=== PATIENT | male | born 1970 | race African-American/Black ===

== ENCOUNTER 2017-01-19 10:45 | Inpatient (IN) | payer OTHER ==
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
--- NOTE | ~2017-01-19 | PN ---
Unit #: [id number] #: [id number] Patient: BRITTANY WRAY [id number] [facility] [address] [place] [address] [id number] I MR#: [id number] NAME: BRITTANY WRAY ROOM: [facility] Age: 46 Sex: M Admission Date: 01/19/2017 : 1970 Attending Physician: Curtis Ellis M.D. Admitting Physician: Curtis Ellis M.D. Primary Care Physician: Tracee Doctor Not In System [facility] PROGRESS NOTES DATE 01/21/2017 DISCUSSION The patient is again sleeping soundly and attempts to arouse him are unsuccessful. He has been restarted on Haldol and should obtain his dose of Haldol Deaconate in the next day or so. Dictated by... Curtis Ellis M.D. CB/cassandra TD: 01/22/2017 03:18 JOB #: [id number] [facility] PROGRESS NOTES Page 1 of 1 X Curtis Ellis MD PROGRESS NOTE
--- NOTE | ~2017-01-19 | DS ---
Unit #: [id number] #: [id number] Patient: BRITTANY WRAY [id number] [facility] [address] [place] [address] [id number] I MR#: [id number] NAME: BRITTANY WRAY ROOM: [facility] Age: 46 Sex: M Admission Date: 01/19/2017 : 1970 Discharge Date: 01/22/2017 Attending Physician: Curtis Ellis M.D. Primary Care Physician: Generic Doctor Not In System DISCHARGE SUMMARY REASON FOR ADMISSION The patient is a 46-year-old white male with a history of chronic paranoid schizophrenia, admitted following a period of medication noncompliance which led to significant decompensation and auditory hallucinations. HOSPITAL COURSE The patient was admitted to the [facility] unit and placed on suicide precautions. He was restarted on previously prescribed Haldol 10 mg b.i.d. and was given a shot of Haldol Decanoate 100 mg. He showed rapid improvement in his mood and symptoms of psychosis, and by 01/22/2017, he was in bright spirits and requesting discharge. It was so ordered. FINAL DIAGNOSES Chronic paranoid schizophrenia and hypertension. DISPOSITION ON DISCHARGE The patient is discharged on the following medications: Haldol Decanoate 100 mg every 2 weeks, last dose given on 01/19/2017 for psychosis, Haldol 10 mg b.i.d. for psychosis, Cogentin 2 mg q.8 hours p.r.n. extrapyramidal symptoms, Norvasc 10 mg daily for hypertension. DISCHARGE INSTRUCTIONS No dietary or physical restrictions were placed upon the patient at the time of discharge. FOLLOWUP Followup will take place through the auspices of [facility]. PROGNOSIS The patient's prognosis is considered fair. Dictated by... Curtis Ellis M.D. CB/annil TD: 01/22/2017 15:43 JOB #: [id number] Unit #: [id number] #: [id number] Patient: BRITTANY WRAY DISCHARGE SUMMARY Page 1 of 1 X Curtis Ellis MD X DISCHARGE SUMMARY
--- NOTE | ~2017-01-19 | PA ---
Unit #: [id number] #: [id number] Patient: BRITTANY WRAY [id number] [facility] [address] [place] [address] [id number] I MR#: [id number] NAME: BRITTANY WRAY ROOM: [facility] Age: Sex: M Admission Date: 01/19/2017 : 1970 Date of Assessment: 01/20/2017 Attending Physician: Curtis Ellis M.D. Admitting Physician: Curtis Ellis M.D. Primary Care Physician: Generic Doctor Not In System PSYCHIATRIC ASSESSMENT IDENTIFYING INFORMATION The patient is a 46-year-old male admitted with increasing psychosis after a 3-month period of medication noncompliance. CHIEF COMPLAINT None given. INFORMANT Chart. Patient cannot be aroused for interview. HISTORY OF PRESENT ILLNESS The patient is a 46-year-old male last discharged from this facility in February 2016. He has a history of chronic paranoid schizophrenia, and he has tended to do fairly well when compliant with prescribed medications, specifically Haldol, Haldol Decanoate and has been off these medications for some 3 months. He had reported to [facility] or reporting auditory command hallucinations and had required physical management at that facility and several p.r.n.s. When seen today, the patient is resting comfortably. He did refuse labs this morning. He is denying abuse of any psychoactive substances. He does have a history of hypertension. In the past, the patient has worked and at the time of his last hospitalization requested discharge so that he could return to his job. For more complete history of present illness, please refer to previously dictated notes. PAST PSYCHIATRIC HISTORY Reviewed, no changes. PAST MEDICAL HISTORY Reviewed, no changes. MEDICATIONS 1. Zestril. 2. Haldol. 3. Haldol Decanoate. ALLERGIES Risperdal, Geodon. FAMILY HISTORY Reviewed, no changes. SOCIAL HISTORY Reviewed, no changes. Unit #: [id number] #: [id number] Patient: BRITTANY WRAY MENTAL STATUS EXAMINATION Examination at this time reveals the patient to be a well-developed well-nourished male who was sleeping soundly, and multiple attempts to arouse him are unsuccessful. ASSETS AND LIABILITIES The patient's assets are to be assessed. Liabilities: Poor compliance with treatment. DIAGNOSTIC IMPRESSION 1. Chronic paranoid schizophrenia. 2. Hypertension. TREATMENT PLAN The patient remains hospitalized for safety and stabilization. We will restart p.o. Haldol as well as Haldol Decanoate which should be provided within the next couple of days. Zestril will also be restarted. I would suspect that given the patient's prior history of treatment at this facility rapid improvement should take place, and we should have out of the hospital within 5 to 7 days. Dictated by... Curtis Ellis M.D. Lanny TD: 01/20/2017 11:19 JOB #: [id number] PSYCHIATRIC ASSESSMENT Page 1 of 1 X Curtis Ellis MD X PSYCHIATRIC ASSESSMENT
[2017-01-21 11:38] LABS: URINE APPEARANCE CLEAR; URINE BILIRUBIN NEG (NEG); URINE BLOOD NEG (NEG); URINE COLOR YELLOW; URINE GLUCOSE NEG (NEG); URINE KETONE NEG (NEG); URINE LEUKOCYTE ESTERASE NEG (NEG); URINE NITRATE NEG (NEG); URINE PROTEIN NEG (NEG); URINE SPECIFIC GRAVITY 1.019 (1.003-1.035)
[2017-01-21 11:51] LABS: AMPHETAMINE NEG (NEG); BARBITURATES NEG (NEG); BENZODIAZEPINES NEG (NEG); COCAINE POS (NEG); MARIJUANA NEG (NEG); OPIATES NEG (NEG); TRICYCLIC ANTIDEPRESSANTS NEG (NEG); U METHADONE NEG (NEG)
== END 2017-01-22 14:45 | disposition home or self-care (01) | DRG 885 ==
LOC: P2L 14:48
PROVIDERS: Specialist
DX: F20.0 Paranoid schizophrenia (principal); I10 Essential (primary) hypertension
CPT/HCPCS: 80307; 81003; J1631

== ENCOUNTER 2017-01-28 08:00 | Inpatient (IN) | payer OTHER ==
--- NOTE | ~2017-01-28 | HP ---
Unit #: [id number] #: [id number] Patient: BRITTANY WRAY [id number] [facility] [address] [place] [address] [id number] I MR#: [id number] NAME: BRITTANY WRAY ROOM: [facility] Age: 46 Sex: M Admission Date: 01/28/2017 : 1970 Attending Physician: Curtis Ellis M.D. Admitting Physician: Curtis Ellis M.D. Primary Care Physician: Generic Doctor Not In System HISTORY AND PHYSICAL HISTORY OF PRESENT ILLNESS Brittany is a 46 year old admitted to [facility] verbalizing wanting to hurt himself. He was just discharged from this facility. The patient was seen and H and P dated 01/20/2017 was reviewed. This is current. No changes. Please see H and P dated 01/20/2017. Dictated by... Aure Palacios P.A.-C. for Isa Fabian/cassandra TD: 01/30/2017 06:24 JOB #: [id number] HISTORY AND PHYSICAL Page 1 of 1 X Aure Palacios HISTORY AND PHYSICAL
--- NOTE | ~2017-01-28 | DS ---
Unit #: [id number] #: [id number] Patient: BRITTANY WRAY [id number] [facility] [address] [place] [address] [id number] I MR#: [id number] NAME: BRITTANY WRAY ROOM: [facility] Age: 46 Sex: M Admission Date: 01/28/2017 : 1970 Discharge Date: 01/30/2017 Attending Physician: Curtis Ellis M.D. Primary Care Physician: Generic Doctor Not In System DISCHARGE SUMMARY REASON FOR ADMISSION The patient is a 46-year-old male, admitted with recurrence of psychosis and anxiety after he had gone without Cogentin. HOSPITAL COURSE The patient was admitted to the [facility] unit and placed on suicide precautions. He was continued on previously prescribed medications. The importance of consistent compliance with medications was discussed with the patient at some length. By 01/30/2017, the patient was in bright spirits. He exhibited absolutely no signs or symptoms of disorder, mood or thought, and requested discharge. Again the importance of consistent compliance, medication was discussed with the patient. As per his request, discharge was ordered on 01/30/2017. FINAL DIAGNOSES Chronic paranoid schizophrenia and hypertension. DISPOSITION ON DISCHARGE The patient is discharged on the following medications: Norvasc 10 mg daily for hypertension, Cogentin 2 mg q.8 hours p.r.n. EPS, Haldol 10 mg b.i.d. for psychosis, Haldol Decanoate 100 mg every 14 days for psychosis. DISCHARGE INSTRUCTIONS No dietary or physical restrictions were placed upon the patient at the time of discharge. FOLLOWUP Followup will take place through the auspices of community mental health resources. PROGNOSIS The patient's prognosis is considered fair. Dictated by... Curtis Ellis M.D. CB/stanley TD: 01/30/2017 14:12 JOB #: [id number] Unit #: [id number] #: [id number] Patient: BRITTANY WRAY DISCHARGE SUMMARY Page 1 of 1 X Curtis Ellis MD X DISCHARGE SUMMARY
--- NOTE | ~2017-01-28 | PA ---
Unit #: [id number] #: [id number] Patient: BRITTANY WRAY [id number] [facility] [address] [place] [address] [id number] MR#: [id number] NAME: BRITTANY WRAY ROOM: [facility] Age: 46 Sex: M Admission Date: 01/28/2017 : 1970 Date of Assessment: 01/29/2017 Attending Physician: Curtis Ellis M.D. Admitting Physician: Curtis Ellis M.D. Primary Care Physician: Generic Doctor Not In System PSYCHIATRIC ASSESSMENT IDENTIFYING INFORMATION The patient is a 46-year-old male admitted in transfer from [facility] where he had presented voicing positive suicidal ideation. CHIEF COMPLAINT "I didn't have my Cogentin and got scared." INFORMANT Patient, patient's reliability is fair. HISTORY OF PRESENT ILLNESS The patient is a 46-year-old male just discharged from this facility on 01/22/2017. The patient reports that he had not taken his Cogentin for several days and "got scared" however the indication in the chart is that the patient had presented to [facility] voicing positive suicidal ideation with a plan to shoot himself. At this point the patient denies suicidal ideation and reports a wish to return to work. He is employed at the [employer] and he is pleasant and cooperative during today's interview. The importance of compliant with medication is discussed with the patient today. For complete history of present illness please refer to previous dictated notes. PAST PSYCHIATRIC HISTORY Reviewed, no changes. PAST MEDICAL HISTORY Reviewed, no changes. MEDICATIONS 1. Haldol Decanoate 2. Haldol 3. Cogentin 4. Norvasc ALLERGIES Risperdal, Geodon. FAMILY HISTORY Reviewed, no changes. SOCIAL HISTORY Reviewed, no changes. Unit #: [id number] #: [id number] Patient: BRITTANY WRAY MENTAL STATUS EXAMINATION Examination at this time reveals the patient to be a well-developed well-nourished male appearing his staged age. He is in no apparent physical distress at the time of the examination. He is awake, alert and oriented in all spheres. His mood is euthymic. His affect full range. Speech is generally relevant and coherent. There are no gross deficits to memory or cognition noted. Intelligence is judged in the average range based on fund of knowledge. The patient is cooperative throughout the interview. He denies current suicidal or homicidal ideation or psychotic features. Judgement and insight appear to be intact. ASSETS AND LIABILITIES ASSETS: Motivation for change. LIABILITIES: Poor compliance of treatment. DIAGNOSTIC IMPRESSION 1. Chronic paranoid schizophrenia. 2. Hypertension. TREATMENT PLAN The patient remains hospitalized for safety and stabilization. He agrees to remain in the hospital for one further day of observation given suicidal threats made at time of admission though today he states that this physician (1)___ to the hospital only after experiencing intolerable extrapyramidal symptoms. The patient will participate in appropriate lynne and milieu activities with an estimate length of stay in the hospital of two days. Dictated by... Curtis Ellis M.D. LUX/cassandra TD: 01/30/2017 03:22 JOB #: [id number] PSYCHIATRIC ASSESSMENT Page 1 of 1 X Curtis Ellis MD X PSYCHIATRIC ASSESSMENT
== END 2017-01-30 15:10 | disposition home or self-care (01) | DRG 885 ==
LOC: P2L 18:58
DX: F20.0 Paranoid schizophrenia (principal); I10 Essential (primary) hypertension

== ENCOUNTER 2017-02-26 10:00 | Inpatient (IN) | payer OTHER ==
[~2017-02-26] VITALS: Ht 170.2 cm; Wt 68.0 kg
--- NOTE | ~2017-02-26 | PN ---
Unit #: [id number] #: [id number] Patient: BRITTANY WRAY [id number] [facility] [address] [place] [address] [id number] I MR#: [id number] NAME: BRITTANY WRAY. ROOM: P212 Age: 46 Sex: M Admission Date: 02/26/2017 : 1970 Attending Physician: Curtis Ellis M.D. Admitting Physician: Curtis Ellis M.D. Primary Care Physician: Generic Doctor Not In System [facility] PROGRESS NOTES DATE 02/28/2017 DISCUSSION The patient remains seclusive to room but offers no new complaints today. He is bright, euthymic, and reports that he is feeling much better with reinitiation of Haldol Decanoate. Should he sustain progress, discharge will likely take place tomorrow. Dictated by... Curtis Ellis M.D. CB/kathleen TD: 02/28/2017 14:52 JOB #: [id number] [facility] PROGRESS NOTES Page 1 of 1 X Curtis Ellis MD PROGRESS NOTE
--- NOTE | ~2017-02-26 | PA ---
Unit #: [id number] #: [id number] Patient: BRITTANY WRAY [id number] [facility] [address] [place] [address] [id number] I MR#: [id number] NAME: BRITTANY WRAY. ROOM: P212 Age: 46 Sex: M Admission Date: 02/26/2017 : 1970 Date of Assessment: 02/27/2017 Attending Physician: Curtis Ellis M.D. Admitting Physician: Curtis Ellis M.D. Primary Care Physician: Generic Doctor Not In System PSYCHIATRIC ASSESSMENT IDENTIFYING INFORMATION The patient is a 46-year-old male admitted in transfer from [facility] where he had presented voicing positive suicidal ideation after a period of medication noncompliance. CHIEF COMPLAINT None given. INFORMANT(S) Chart. Patient cannot be aroused for interview. HISTORY OF PRESENT ILLNESS The patient is a 46-year-old male last admitted to this facility on 01/28/2017. The patient is readmitted with recurrent auditory hallucinations of a command type telling him to harm himself. He was noted to be quite paranoid when seen yesterday in the emergency room at [facility]. 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 For more complete history of present illness, please refer to previously dictated notes. PAST PSYCHIATRIC HISTORY Reviewed, no changes. PAST MEDICAL HISTORY Reviewed, no changes. MEDICATIONS 1. Haldol. 2. Haldol decanoate. 3. Cogentin. 4. Norvasc. ALLERGIES Risperdal, Geodon. FAMILY HISTORY Reviewed, no changes. SOCIAL HISTORY Reviewed, no changes. MENTAL STATUS EXAMINATION Examination at this time reveals the patient to be a soundly sleeping Unit #: [id number] #: [id number] Patient: BRITTANY WRAY male. Multiple attempts to arouse him were unsuccessful. ASSETS AND LIABILITIES The patient's assets: Motivation for change. Maintenance of employment. Liabilities: Poor compliance with treatment. DIAGNOSTIC IMPRESSION 1. Chronic paranoid schizophrenia. 2. Hypertension. TREATMENT PLAN The patient remains hospitalized for safety and stabilization. He has received a dose of Haldol Decanoate, and we will continue other previously prescribed medications including Norvasc. The patient will participate in appropriate order of milieu activities. ESTIMATED LENGTH OF STAY 2 to 3 days. Dictated by... Isa De Anda TD: 02/27/2017 13:44 JOB #: [id number] PSYCHIATRIC ASSESSMENT Page 1 of 1 X Curtis Ellis MD X PSYCHIATRIC ASSESSMENT
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
== END 2017-03-01 14:38 | disposition home or self-care (01) | DRG 885 ==
LOC: P2S 13:42
DX: F20.0 Paranoid schizophrenia (principal); I10 Essential (primary) hypertension
CPT/HCPCS: J1631

== ENCOUNTER 2017-03-20 16:20 | Inpatient (IN) | payer OTHER ==
[~2017-03-20] VITALS: Ht 170.2 cm; Wt 68.0 kg
--- NOTE | ~2017-03-20 | PN ---
Unit #: [id number] #: [id number] Patient: BRITTANY WRAY [id number] [facility] [address] [place] [address] [id number] MR#: [id number] NAME: BRITTANY WRAY. ROOM: P114 Age: 46 Sex: M Admission Date: 03/20/2017 : 1970 Attending Physician: Curtis Ellis M.D. Admitting Physician: Curtis Ellis M.D. Primary Care Physician: Tracee Doctor Not In System [facility] N[facility]YEN NOTES DATE 03/23/2017 DISCUSSION The patient is out of bed today. His behavior has been more appropriate, and he has not required any p.r.n.s today. He is tearful during today's interview. While pushing for discharge, he seems to understand the issues he is having with medication noncompliance and frequent readmissions to the hospital. I will ask the patient's social media job titles to see him regarding [facility] versus more stringent case management from his outpatient provider to assure medication compliance. Dictated by... Curtis Ellis M.D. LUX/kathleen TD: 03/23/2017 14:56 JOB #: [id number] [facility] NOTES Page 1 of 1 X Curtis Ellis MD PROGRESS NOTE
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
--- NOTE | ~2017-03-20 | PA ---
Unit #: [id number] #: [id number] Patient: BRITTANY WRAY [id number] [place] [address] [id number] I MR#: [id number] NAME: BRITTANY WRAY. ROOM: 14 Age: 46 Sex: M Admission Date: 03/20/2017 : 1970 Date of Assessment: 03/21/2017 Attending Physician: Curtis Ellis M.D. Admitting Physician: Curtis Ellis M.D. Primary Care Physician: Generic Doctor Not In System PSYCHIATRIC ASSESSMENT IDENTIFYING INFORMATION The patient is a 46-year-old male well known to this physician. He is admitted with history of increasing psychosis. CHIEF COMPLAINT None given. INFORMANT(S) Patient and chart, reliability fair. HISTORY OF PRESENT ILLNESS The patient is a 46-year-old male well known to this physician from multiple previous admissions to this facility. He is maintained on Haldol and Haldol Decanoate, but his compliance with these medications has been less than optimal. It is unclear when the patient received his last Haldol injection though he was last discharged from this facility on 03/01/2017. It is likely that he is due for dose of this medication. The patient had presented to [facility] reporting positive auditory hallucinations of a command type. When seen today, the patient is sleeping with a blanket covering his head. For more complete history of present illness, please refer to previously dictated notes. PAST PSYCHIATRIC HISTORY Reviewed, no changes. PAST MEDICAL HISTORY Reviewed, no changes. MEDICATIONS 1. Haldol. 2. Haldol Decanoate. 3. Cogentin. 4. Norvasc. FAMILY HISTORY Reviewed, no changes. SOCIAL HISTORY Reviewed, no changes. MENTAL STATUS EXAMINATION Examination at this time reveals the patient to be a soundly sleeping Unit #: [id number] #: [id number] Patient: BRITTANY WRAY male who cannot be aroused for interview. ASSETS AND LIABILITIES The patient's assets are to be assessed. Liabilities: Poor compliance with treatment. DIAGNOSTIC IMPRESSION Chronic paranoid schizophrenia. TREATMENT PLAN We will restart the patient's previously prescribed medications including Norvasc, Cogentin, and Haldol, and we will administer Haldol Decanoate shot if in fact one is due. The patient tends to clear rapidly after his medications have been restarted, and I would expect an estimated length of hospital of 2 to 5 days. Dictated by... Curtis Ellis M.D. Lanny TD: 03/21/2017 14:39 JOB #: [id number] PSYCHIATRIC ASSESSMENT Page 1 of 1 X Curtis Ellis MD X PSYCHIATRIC ASSESSMENT
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
--- NOTE | ~2017-03-20 | DS ---
Unit #: [id number] #: [id number] Patient: BRITTANY WRAY [id number] [place] [address] [id number] I MR#: [id number] NAME: BRITTANY WRAY. ROOM: P114 Age: 46 Sex: M Admission Date: 03/20/2017 : 1970 Discharge Date: 03/24/2017 Attending Physician: Curtis Ellis M.D. Primary Care Physician: Generic Doctor Not In System DISCHARGE SUMMARY REASON FOR ADMISSION The patient is a 46-year-old male, admitted to the [address] [place] [address] unit with recurrent psychotic symptoms. HOSPITAL COURSE The patient was admitted to the [address] [place] [address] unit and placed on suicide precautions. He was restarted on previously prescribed medications and received his Haldol Decanoate injection. It was the feeling of this physician that the patient's frequent readmissions to this facility joint take place secondary to his failing to receive his Haldol injection and his hospitalizations taking place slightly greater than two weeks apart related to this. To this and this physician did ask that the patient be seen by clinical social worker regarding a means to possibly increase his compliance with his Haldol Decanoate injections. Unfortunately, this contact did not occur. Further, the patient did not clear as quickly as generally noted. It was finally learnt that there had been a med error and the patient was not receiving p.o. Haldol during his stay in the hospital. Once this medication was re-initiated, the patient was in brighter spirits and requested discharge on 03/24/2017, it was so ordered. FINAL DIAGNOSIS Chronic paranoid schizophrenia. DISPOSITION ON DISCHARGE The patient is discharged on the following medications: Haldol Decanoate 100 mg every two weeks for psychosis, last dose given on 03/21/2017, Haldol 10 mg b.i.d. for psychosis, Cogentin 2 mg q.8 hours p.r.n. stiffness, Norvasc 10 mg once daily for hypertension. No dietary or physical restrictions were placed on the patient at the time of discharge. FOLLOWUP Followup will take place through the auspices of [facility] mental health resources. PROGNOSIS Considered fair. Dictated by... Curtis Ellis M.D. CB/modl Unit #: [id number] #: [id number] Patient: BRITTANY WRAY TD: 03/25/2017 10:41 JOB #: [id number] DISCHARGE SUMMARY Page 1 of 1 X Curtis Ellis MD DISCHARGE SUMMARY
== END 2017-03-24 12:55 | disposition home or self-care (01) | DRG 885 ==
LOC: P1S 20:13
DX: F20.0 Paranoid schizophrenia (principal); Z93.0 Tracheostomy status; F17.210 Nicotine dependence, cigarettes, uncomplicated
CPT/HCPCS: J1200; J1630; J1631; J2060

== ENCOUNTER 2017-03-28 20:12 | Inpatient (IN) | payer OTHER ==
[~2017-03-28] VITALS: Ht 170.2 cm; Wt 68.0 kg
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
--- NOTE | ~2017-03-28 | PN ---
Unit #: [id number] #: [id number] Patient: BRITTANY WRAY [id number] [facility] [address] [place] [address] [id number] MR#: [id number] NAME: BRITTANY WRAY ROOM: 15 Age: 46 Sex: M Admission Date: 03/29/2017 : 1970 Attending Physician: Curtis Ellis M.D. Admitting Physician: Curtis Ellis M.D. Primary Care Physician: Generic Doctor Not In System [facility] PROGRESS NOTES DATE 04/02/2017 DISCUSSION The patient seems to be improved with addition of Trilafon. He is bright and euthymic today and should he sustain progress, discharge could take place as early as tomorrow. Dictated by... Curtis Ellis M.D. CB/nicholas TD: 04/02/2017 13:12 JOB #: [id number] [facility] PROGRESS NOTES Page 1 of 1 X Curtis Ellis MD X PROGRESS NOTE
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
--- NOTE | ~2017-03-28 | PA ---
Unit #: [id number] #: [id number] Patient: BRITTANY WRAY [id number] [facility] [address] [place] [address] [id number] I MR#: [id number] NAME: BRITTANY WRAY. ROOM: P131 Age: 46 Sex: M Admission Date: 03/29/2017 : 1970 Date of Assessment: 03/29/2017 Attending Physician: Curtis Ellis M.D. Admitting Physician: Curtis Ellis M.D. Primary Care Physician: Generic Doctor Not In System PSYCHIATRIC ASSESSMENT IDENTIFYING INFORMATION The patient is a 46-year-old male readmitted to the [address] [place] [address] unit with recurrence of behavioral disturbance. INFORMANT(S) Chart, patient could not be aroused for interview. CHIEF COMPLAINT None given. HISTORY OF PRESENT ILLNESS The patient is a 46-year-old male with a history of chronic paranoid schizophrenia. He had just been discharged from this facility on 03/24 but has returned to the hospital with positive psychotic symptoms and vague homicidal ideation. The patient cannot be aroused for interview today and further information is not available on the chart at this time. For a more complete history of present illness, please refer to previous dictated notes. PAST PSYCHIATRIC HISTORY Reviewed, no changes. SOCIAL HISTORY Reviewed, no changes. MEDICAL HISTORY Reviewed, no changes. MEDICATION HISTORY 1. Haldol. 2. Cogentin. 3. Haldol Decanoate. ALLERGIES Reviewed, no changes. MENTAL STATUS EXAM At this time, reveals the patient to be a soundly sleeping male appearing his stated age. He cannot be aroused for interview. ASSETS AND LIABILITIES Patient's assets to be assessed. Liabilities, lack of resources. Unit #: [id number] #: [id number] Patient: BRITTANY WRAY DIAGNOSTIC IMPRESSION Chronic paranoid schizophrenia. PSYCHIATRIC PLAN/TREATMENT GOALS The patient remains hospitalized for safety and stabilization. I will increase his p.o. Haldol to t.i.d. dosing and continue previously prescribed Haldol Decanoate which will be due in about a week. The patient will participate in appropriate lynne and milieu activities. ESTIMATED LENGTH OF STAY Three to five days. Dictated by... Curtis Ellis M.D. LUX/nicholas TD: 03/29/2017 15:55 JOB #: [id number] PSYCHIATRIC ASSESSMENT Page 1 of 1 X Curtis Ellis MD PSYCHIATRIC ASSESSMENT
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
--- NOTE | ~2017-03-28 | DS ---
Unit #: [id number] #: [id number] Patient: BRITTANY WRAY [id number] [facility] [address] [place] [address] [id number] MR#: [id number] NAME: BRITTANY WRAY. ROOM: [facility] Age: 46 Sex: M Admission Date: 03/29/2017 : 1970 Discharge Date: 04/03/2017 Attending Physician: Curtis Ellis M.D. Primary Care Physician: Generic Doctor Not In System DISCHARGE SUMMARY REASON FOR ADMISSION The patient is a 46-year-old male with a history of schizophrenia, admitted with recurrence of symptoms. HOSPITAL COURSE The patient was admitted to the [address] [place] [address] unit and placed on suicide precautions. He was initially continued on previously prescribed Haldol, however, it became clear that this medication was no longer effectively addressing the patient's symptoms of psychosis. The patient reported history of positive response to Trilafon and requested reinitiation of this medication. It was restarted at a dose of 8 mg t.i.d. on 03/30/2017, the patient showed slow, but steady improvement in mood and behavior and required no further p.r.n. With initiation of Trilafon, he tolerated the medication after some initial sedation and by 04/03/2017, requested discharge. He appeared at that point to be at or near his psychiatric baseline. Discharge was ordered. FINAL DIAGNOSES Chronic paranoid schizophrenia. DISPOSITION ON DISCHARGE The patient is discharged on the following medications: Cogentin 2 mg b.i.d. for extrapyramidal symptoms, Trilafon 8 mg t.i.d. for psychosis, Norvasc 10 mg q.a.m. for hypertension. DISCHARGE INSTRUCTIONS No dietary or physical restrictions were placed upon the patient at the time of discharge. FOLLOWUP Followup will take place through the auspices of [facility] mental health resources specifically [facility]. PROGNOSIS The patient's prognosis considered good. Dictated by... Curtis Ellis M.D. CB/stanley TD: 04/03/2017 16:14 Unit #: [id number] #: [id number] Patient: BRITTANY WRAY JOB #: [id number] DISCHARGE SUMMARY Page 1 of 1 X Curtis Ellis MD DISCHARGE SUMMARY
--- NOTE | ~2017-03-28 | PN ---
Unit #: [id number] #: [id number] Patient: BRITTANY WRAY [id number] [facility] [address] [place] [address] [id number] I MR#: [id number] NAME: BRITTANY WRAY ROOM: 15 Age: 46 Sex: M Admission Date: 03/29/2017 : 1970 Attending Physician: Curtis Ellis M.D. Admitting Physician: Curtis Ellis M.D. Primary Care Physician: Generic Doctor Not In System [facility] PROGRESS NOTES DATE 04/01/2017 DISCUSSION The patient is once again noted to be abed with little participation within the therapeutic milieu. He seems to be tolerating initiation of Trilafon but may have some issues tolerating the sedative qualities of this medication which may necessitate some back titration. Dictated by... Curtis Ellis M.D. CB/cassandra TD: 04/01/2017 22:38 JOB #: [id number] [facility] PROGRESS NOTES Page 1 of 1 X Crutis Ellis MD X PROGRESS NOTE
== END 2017-04-03 16:01 | disposition home or self-care (01) | DRG 885 ==
LOC: P1S 03-29 01:27
DX: F20.0 Paranoid schizophrenia (principal); I10 Essential (primary) hypertension; F17.200 Nicotine dependence, unspecified, uncomplicated
CPT/HCPCS: 73030; J1200; J1630; J2060

== ENCOUNTER 2017-04-06 15:44 | Inpatient (IN) | payer OTHER ==
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
--- NOTE | ~2017-04-06 | PA ---
Unit #: [id number] #: [id number] Patient: BRITTANY WRAY [id number] [facility] [address] [place] [address] [id number] I MR#: [id number] NAME: BRITTANY WRAY. ROOM: 12 Age: 46 Sex: M Admission Date: 04/06/2017 : 1970 Date of Assessment: 04/07/2017 Attending Physician: Curtis Ellis M.D. Admitting Physician: Curtis Ellis M.D. Primary Care Physician: Generic Doctor Not In System PSYCHIATRIC ASSESSMENT IDENTIFYING INFORMATION The patient is a 46-year-old male admitted voicing positive suicidal ideation. CHIEF COMPLAINT "I'm tired of living like this." INFORMANT(S) Patient and chart. RELIABILITY Fair. HISTORY OF PRESENT ILLNESS The patient is a 46-year-old male well known to this physician from multiple previous admissions the last of which ended on 04/03/2017. The patient has a history of chronic paranoid schizophrenia and claims to have been compliant with medications. During his last stay in the hospital, he was switched from haloperidol to Trilafon. He claims to have been compliant with this medication and had reported a history of positive response to that medication. However, the patient had returned to [facility] voicing auditory hallucinations of a command type telling him to harm himself. He continues to endorse positive suicidal ideation when seen today. He states that he has "done well on Prozac in the past" and wishes to restart that medication. For more complete history of present illness, please refer to previously dictated notes. PAST PSYCHIATRIC HISTORY Reviewed, no changes. PAST MEDICAL HISTORY Reviewed, no changes. MEDICATIONS Trilafon, Norvasc, Cogentin. ALLERGIES Risperdal and Geodon. FAMILY HISTORY Reviewed, no changes. Unit #: [id number] #: [id number] Patient: BRITTANY WRAY SOCIAL HISTORY Reviewed, no changes. MENTAL STATUS EXAMINATION Examination at this time reveals the patient to be a well-developed well-nourished male appearing stated age. He is in no apparent physical distress at the time of examination. He is awake, alert, and oriented in all spheres. His mood is dysphoric, his affect blunted. Speech is generally well-coherent. There are no gross deficits in memory or cognition noted. Intelligence is judged to be in the average range based on fund of knowledge. The patient is cooperative throughout the interview. He continues to endorse positive suicidal ideation. He continues to endorse positive command auditory hallucinations. His judgment and insight continue to appear to be significantly impaired. ASSETS AND LIABILITIES The patient's assets are to be assessed. Liabilities: Lack of resources. DIAGNOSTIC IMPRESSION 1. Chronic undifferentiated schizophrenia. 2. Hypertension. TREATMENT PLAN The patient's does of Trilafon will be increased to 60 mg twice daily, and I will add Prozac 20 mg daily to address depressive symptoms given the patient's reported history of positive response to that medication. We will continue suicide precautions. ESTIMATED LENGTH OF STAY 5 to 7 days. Dictated by... Curtis Ellis M.D. LUX/kathleen TD: 04/07/2017 12:26 JOB #: [id number] PSYCHIATRIC ASSESSMENT Page 1 of 1 X Curtis Ellis MD X PSYCHIATRIC ASSESSMENT
--- NOTE | ~2017-04-06 | PN ---
Unit #: [id number] #: [id number] Patient: BRITTANY WRAY [id number] [facility] [address] [place] [address] [id number] I MR#: [id number] NAME: BRITTANY WRAY ROOM: 12 Age: 46 Sex: M Admission Date: 04/06/2017 : 1970 Attending Physician: Curtis Ellis M.D. Admitting Physician: Curtis Ellis M.D. Primary Care Physician: Generic Doctor Not In System [facility] PROGRESS NOTES DATE 04/08/2017 DISCUSSION The patient is a bed with a blanket pulled over his head today. Multiple attempts to arouse the patient were unsuccessful. Staff reports no management issues as characterized his previous hospital stays. Dictated by... Curtis Ellis M.D. CB/cassandra TD: 04/09/2017 00:19 JOB #: [id number] [facility] PROGRESS NOTES Page 1 of 1 X Curtis Ellis MD X PROGRESS NOTE
--- NOTE | ~2017-04-06 | HP ---
Unit #: [id number] #: [id number] Patient: BRITTANY WRAY [id number] [facility] [address] [place] [address] [id number] I MR#: [id number] NAME: BRITTANY WRAY. ROOM: 12 Age: 46 Sex: M Admission Date: 04/06/2017 : 1970 Attending Physician: Curtis Ellis M.D. Admitting Physician: Curtis Ellis M.D. Primary Care Physician: Generic Doctor Not In System HISTORY AND PHYSICAL The patient is a 46-year-old male admitted to [address] [place] [address] on 04/06/2017 for psychosis. Patient has had numerous admissions to this facility for the same. His most recent admission was on 03/29/2017 where a full history and physical was completed. That history and physical has been reviewed. No changes need to be made. Dictated by... Hema Tidwell/nicholas TD: 04/07/2017 16:07 JOB #: [id number] HISTORY AND PHYSICAL Page 1 of 1 X FELA SIDHU APRN HISTORY AND PHYSICAL
--- NOTE | ~2017-04-06 | PN ---
Unit #: [id number] #: [id number] Patient: BRITTANY WRAY [id number] [facility] [address] [place] [address] [id number] I MR#: [id number] NAME: BRITTANY WRAY ROOM: 12 Age: 46 Sex: M Admission Date: 04/06/2017 : 1970 Attending Physician: Curtis Ellis M.D. Admitting Physician: Curtis Ellis M.D. Primary Care Physician: Tracee Doctor Not In System [facility] PROGRESS NOTES DATE 04/09/2017 DISCUSSION The patient is a bit brighter today and is tolerating initiation of Prozac without complaint. We continue current treatment as the patient appears to be approaching his psychiatric baseline. Dictated by... Curtis Ellis M.D. CB/cassandra TD: 04/09/2017 22:08 JOB #: [id number] [facility] PROGRESS NOTES Page 1 of 1 X Curtis Ellis MD X PROGRESS NOTE
== END 2017-04-10 11:53 | disposition home or self-care (01) | DRG 885 ==
LOC: P1S 23:46
DX: F20.5 Residual schizophrenia (principal); R45.851 Suicidal ideations; I10 Essential (primary) hypertension

== ENCOUNTER 2017-04-14 11:23 | Inpatient (IN) | payer OTHER ==
[~2017-04-14] VITALS: Ht 170.2 cm; Wt 68.0 kg
--- NOTE | ~2017-04-14 | PA ---
Unit #: [id number] #: [id number] Patient: BRITTANY WRAY [id number] [facility] [address] [place] [address] [id number] MR#: [id number] NAME: BRITTANY WRAY. ROOM: 81 Age: 46 Sex: M Admission Date: 04/14/2017 : 1970 Date of Assessment: 04/15/2017 Attending Physician: Curtis Ellis M.D. Admitting Physician: Curtis Ellis M.D. Primary Care Physician: Generic Doctor Not In System PSYCHIATRIC ASSESSMENT IDENTIFYING INFORMATION The patient is a 46-year-old single male admitted in transfer from [facility] after once again claiming to be experiencing auditory hallucinations and reporting abuse of cocaine and alcohol. CHIEF COMPLAINT None given. INFORMANT(S) Patient, reliability fair. HISTORY OF PRESENT ILLNESS The patient is a 46-year-old male last discharged from this facility 04/10. He returns after presenting to [facility] reporting positive auditory hallucinations of a command time telling him to harm himself. He admits that he has been using increased alcohol and cocaine outside the hospital. When seen today the patient continues to endorse auditory hallucinations of a command type and continues to endorse positive suicidal ideation. For more complete history of present illness please refer to previous dictated notes. PAST PSYCHIATRIC HISTORY Reviewed, no changes. PAST MEDICAL HISTORY Reviewed, no changes. MEDICATIONS Prozac, Trilafon, Norvasc, Cogentin. ALLERGIES Geodon and Risperdal. FAMILY HISTORY Reviewed, no changes. SOCIAL HISTORY Reviewed, no changes. MENTAL STATUS EXAMINATION Examination at this time reveals the patient to be a well-developed well-nourished male appearing his stated age. He is in Unit #: [id number] #: [id number] Patient: BRITTANY WRAY no apparent physical distress at the time of examination. He is awake, alert, and oriented in all spheres. His mood is mildly dysphoric, his affect constricted. Speech is generally relevant and coherent. There are no gross deficits in memory or cognition noted. Intelligence is judged to be in the average range based on fund of knowledge. The patient is cooperative throughout the interview. He reports positive suicidal ideation. He reports positive command auditory hallucinations. His judgment and insight continue to appear to be reasonably intact. ASSETS AND LIABILITIES ASSETS: To be assessed. LIABILITIES: Lack of resources. DIAGNOSTIC IMPRESSION 1. Chronic paranoid schizophrenia. 2. Alcohol use disorder. 3. Cocaine use disorder. 4. Hypertension. TREATMENT PLAN The patient remains hospitalized for safety and stabilization. A routine detoxification protocol has been initiated and the patient's home medications have been restarted. Suicide precautions remain in place. ESTIMATED LENGTH OF STAY Estimate length of stay in the hospital is three to five days. Dictated by... Curtis Ellis M.D. LUX/cassandra TD: 04/16/2017 00:53 JOB #: [id number] PSYCHIATRIC ASSESSMENT Page 1 of 1 X Curtis Ellis MD X PSYCHIATRIC ASSESSMENT
--- NOTE | ~2017-04-14 | PN ---
Unit #: [id number] #: [id number] Patient: BRITTANY WRAY [id number] [facility] [address] [place] [address] [id number] MR#: [id number] NAME: BRITTANY WRAY ROOM: [facility] Age: 46 Sex: M Admission Date: 04/14/2017 : 1970 Attending Physician: Curtis Ellis M.D. Admitting Physician: Curtis Ellis M.D. Primary Care Physician: Generic Doctor Not In System [facility] PROGRESS NOTES DATE 04/16/2017 DISCUSSION The patient is abed today with a blanket covering his head. He does not arouse for interview and staff reports no issues with detox or other behavioral issues. Dictated by... Curtis Ellis M.D. CB/cassandra TD: 04/17/2017 00:14 JOB #: [id number] [facility] PROGRESS NOTES Page 1 of 1 X Curtis Ellis MD X PROGRESS NOTE
--- NOTE | ~2017-04-14 | HP ---
Unit #: [id number] #: [id number] Patient: BRITTANY WRAY [id number] [facility] [address] [place] [address] [id number] I MR#: [id number] NAME: BRITTANY WRAY. ROOM: 81 Age: 46 Sex: M Admission Date: 04/14/2017 : 1970 Attending Physician: Curtis Ellis M.D. Admitting Physician: Curtis Ellis M.D. Primary Care Physician: Generic Doctor Not In System HISTORY AND PHYSICAL Patient is a 46-year-old male admitted to [facility] on 04/14/2017 for auditory and visual hallucinations and for drug abuse. Patient had a recent admission on 03/29/2017 where a full history and physical was completed. That history and physical has been reviewed, no changes need to be made. Dictated by... Hema Tidwell/cassandra TD: 04/16/2017 01:50 JOB #: [id number] HISTORY AND PHYSICAL Page 1 of 1 X FELA SIDHU APRN X HISTORY AND PHYSICAL
--- NOTE | ~2017-04-14 | A ---
[facility] Nutrition Therapy DATE: 04/16/17 Patient: BRITTANY Jean KAMALA Physician: CHEMA Address: [address] [place] [address] Room/Bed: [address], Zip: [place] [address] Admit Date: 04/14/17 Date of : [birth year] Height: 5 7 Weight: 149 68.0388 NUTRITIONAL ASSESSMENT: REASON: 1 point malnutrition risk score re: unintentional weight loss Admitting dx: 46 y/o male admitted with PSA, hallucinations, SI PMH: HTN, PSA, psych Anthropometrics: Ht: 67", Wt: 145 lbs, BMI: 23.5 (normal), UBW: 150-165 lbs Labs: None available Meds: Reviewed Assessment: Chart reviewed, events noted. Patient undergoing detox from ETOH and cocaine. He receives disability and lives alone in an apartment. He has had multiple prior admissions to this facility. He is on a regular diet, reporting poor appetite with 15 lb weight loss in "weeks" upon admission. Past weights confirm this loss. RD unable to interview the pt at this time as I am charting from another facility. His appetite is now documented as fair-good, suspect PO intake will improve with psych tx and consistent meals. See recs below. Dx: Unintentional weight loss r/t psych hx, PSA AEB 1 point malnutrition risk score. Intervention: Regular diet Monitoring, Evaluation and Goals: 1. PO intake > 50% of meals. 2. Prevent further unintentional weight loss. Monitor: per consult, prn Recommendations: 1. Continue regular diet, encourage oral intake. 2. If PO intake falls below 50% of meals please order Ensure Plus BID. 3. Please weigh q 3 days for monitoring purposes given recent reported weight loss. 4. Please consult RD with any further nutritional needs. [facility] Nutrition Therapy DATE: 04/16/17 Patient: BRITTANY G KAMALA Physician: CHEMA Address: [address] [place] [address] Room/Bed: [address], Zip: [place] [address] Admit Date: 04/14/17 Date of : [birth year] Height: 5 7 Weight: 149 68.0388 Mild nutrition risk Respectfully, Ngozi Brothers, SARA, LD [employer] [facility] [employer] cc: client file
--- NOTE | ~2017-04-14 | DS ---
Unit #: [id number] #: [id number] Patient: BRITTANY WRAY [id number] [facility] [address] [place] [address] [id number] I MR#: [id number] NAME: BRITTANY WRAY. ROOM: [facility] Age: 46 Sex: M Admission Date: 04/14/2017 : 1970 Discharge Date: 04/17/2017 Attending Physician: Curtis Ellis M.D. Primary Care Physician: Generic Doctor Not In System DISCHARGE SUMMARY REASON FOR ADMISSION The patient is a 46-year-old male with a history of schizophrenia, admitted reporting increased alcohol use. HOSPITAL COURSE The patient was admitted to the [facility] Unit and continued on previously prescribed medications including Trilafon, Cogentin, and Prozac. He remained seclusive to room with little participation within the therapeutic milieu. On 04/17/2017, the patient exhibited no signs or symptoms of withdrawal. At that point, staff informed this physician that the patient was not compliant with any medications nor was he compliant with any groups. In the absence of psychotic symptoms, suicidal ideation, or any evidence of withdrawal, discharge was ordered. FINAL DIAGNOSES 1. Alcohol use disorder. 2. Chronic paranoid schizophrenia. DISPOSITION ON DISCHARGE The patient was discharged on the following medications: 1. Prozac 20 mg daily for depression. 2. Norvasc 5 mg daily for hypertension. 3. Cogentin 2 mg 3 times daily for extrapyramidal symptoms. 4. Trilafon 60 mg twice daily for psychosis. DIET AND ACTIVITY No dietary or physical restrictions placed on the patient at the time of discharge. FOLLOWUP Followup will take place through the auspices of community mental health resources. PROGNOSIS Remains guarded. Dictated by... Curtis Ellis M.D. LUX/kathleen TD: 04/18/2017 12:40 Unit #: [id number] #: [id number] Patient: BRITTANY WRAY JOB #: [id number] DISCHARGE SUMMARY Page 1 of 1 X Curtis Ellis MD X DISCHARGE SUMMARY
[2017-04-17 12:53] LABS: URINE APPEARANCE CLEAR; URINE BILIRUBIN NEG (NEG); URINE BLOOD NEG (NEG); URINE COLOR YELLOW; URINE GLUCOSE NEG (NEG); URINE KETONE NEG (NEG); URINE LEUKOCYTE ESTERASE 1+ (NEG); URINE NITRATE NEG (NEG); URINE PH 8.5 (5-8); URINE PROTEIN NEG (NEG); URINE SPECIFIC GRAVITY 1.011 (1.003-1.035)
[2017-04-17 12:57] LABS: URBCS1 AUWI 0-2 /[HPF] (0-2); URINE BACTERIA AUWI NEG (NEGATIVE); URINE SQUAMOUS EPITHELIAL CELL OCC /[HPF]; UWBCS1 AUWI 25-50 (0-5)
== END 2017-04-17 15:04 | DRG 897 ==
LOC: P1E 16:28 → POF 04-15 07:34 → P1E 04-15 07:37
PROVIDERS: Specialist
DX: F10.10 Alcohol abuse, uncomplicated (principal); F14.10 Cocaine abuse, uncomplicated; F20.0 Paranoid schizophrenia; I10 Essential (primary) hypertension
CPT/HCPCS: 81003

== ENCOUNTER 2017-04-24 16:09 | Inpatient (IN) | payer OTHER ==
[~2017-04-24] VITALS: Ht 170.2 cm; Wt 68.0 kg
--- NOTE | ~2017-04-24 | PN ---
Unit #: [id number] #: [id number] Patient: BRITTANY WRAY [id number] [facility] [address] [place] [address] [id number] I MR#: [id number] NAME: BRITTANY WRAY. ROOM: P114 Age: 47 Sex: M Admission Date: 04/24/2017 : 1970 Attending Physician: Curtis Ellis M.D. Admitting Physician: Curtis Ellis M.D. Primary Care Physician: Tracee Doctor Not In System [facility] PROGRESS NOTES DATE 04/26/2017 DISCUSSION The patient is abed today. He requests reinitiation of Haldol stating that "Prozac and Trilafon ain't doing it." I will restart Haldol at a dose of 10 mg 3 times daily, discontinuing Trilafon and Prozac, and I will talk to the patient regarding possible reinitiation of Depot Haldol. Dictated by... Curtis Ellis M.D. CB/kathleen TD: 04/26/2017 14:56 JOB #: [id number] [facility] PROGRESS NOTES Page 1 of 1 X Curtis Ellis MD X PROGRESS NOTE
--- NOTE | ~2017-04-24 | PN ---
Unit #: [id number] #: [id number] Patient: BRITTANY WRAY [id number] [facility] [address] [place] [address] [id number] I MR#: [id number] NAME: BRITTANY WRAY ROOM: P114 Age: 47 Sex: M Admission Date: 04/24/2017 : 1970 Attending Physician: Curtis Ellis M.D. Admitting Physician: Curtis Ellis M.D. Primary Care Physician: Tracee Doctor Not In System [facility] PROGRESS NOTES DATE 04/28/2017 DISCUSSION The patient is in brighter spirits today and is reporting reduction in auditory hallucinations with re-initiation of Haldol Decanoate. Should he sustain progress, discharge could take place as early as tomorrow. Dictated by... Curtis Ellis M.D. CB/nicholas TD: 04/28/2017 12:28 JOB #: [id number] [facility] PROGRESS NOTES Page 1 of 1 X uCrtis Ellis MD X PROGRESS NOTE
--- NOTE | ~2017-04-24 | HP ---
Unit #: [id number] #: [id number] Patient: BRITTANY WRAY [id number] [place] [address] [id number] I MR#: [id number] NAME: BRITTANY WRAY ROOM: P114 Age: 47 Sex: M Admission Date: 04/24/2017 : 1970 Attending Physician: Curtis Ellis M.D. Admitting Physician: Curtis Ellis M.D. Primary Care Physician: Generic Doctor Not In System HISTORY AND PHYSICAL NOTE Brittany is a 47 year old admitted to [address] [place] [address] reporting auditory and visual hallucinations. He was just discharged from this facility. The patient was seen and H and P dated 03/29/2017 was reviewed. This is current. No changes. Please see H and P dated 03/29/2017. Dictated by... Aure Palacios P.A.-C. for Isa Fabian/cassandra TD: 04/25/2017 20:37 JOB #: [id number] HISTORY AND PHYSICAL Page 1 of 1 X Aure Palacios HISTORY AND PHYSICAL
--- NOTE | ~2017-04-24 | PN ---
Unit #: [id number] #: [id number] Patient: BRITTANY WRAY [id number] [facility] [address] [place] [address] [id number] MR#: [id number] NAME: BRITTANY WRAY. ROOM: P114 Age: 47 Sex: M Admission Date: 04/24/2017 : 1970 Attending Physician: Curtis Ellis M.D. Admitting Physician: Curtis Ellis M.D. Primary Care Physician: Tracee Doctor Not In System [facility] PROGRESS NOTES DATE 04/27/2017 DISCUSSION The patient today agrees to re-initiation of depo haloperidol as he had been getting only 100 mg every 2 weeks. We may look to increase his dose and make it a frequency of which he needs to get these shots a little less frequent. He is reporting some reduction in suicidal ideation and is calmer during today's interview. Dictated by... Curtis Ellis M.D. LUX/nicholas TD: 04/27/2017 15:54 JOB #: [id number] [facility] PROGRESS NOTES Page 1 of 1 X Curtis Ellis MD X PROGRESS NOTE
--- NOTE | ~2017-04-24 | DS ---
Unit #: [id number] #: [id number] Patient: BRITTANY WRAY [id number] [facility] [address] [place] [address] [id number] MR#: [id number] NAME: BRITTANY WRAY. ROOM: P114 Age: 47 Sex: M Admission Date: 04/24/2017 : 1970 Discharge Date: 04/29/2017 Attending Physician: Curtis Ellis M.D. Primary Care Physician: Generic Doctor Not In System DISCHARGE SUMMARY REASON FOR ADMISSION The patient is a 46-year-old male, admitted with recurrence of psychosis and auditory hallucinations as well as suicidal thinking. HOSPITAL COURSE The patient was admitted to the [address] [place] [address] unit and placed on suicide precautions. He was initially continued on previously prescribed medications including Prozac, Trilafon, Cogentin, and Norvasc. It was the patient's feelings that the Trilafon was no longer effectively addressing his symptoms. He requested reinitiation of Haldol. He also requested discontinuation of Prozac as he felt as though this medication had "made things worse." By 04/29/2017, the patient had been restarted on Haldol 10 mg t.i.d. and received Haldol Decanoate shot. He appeared to be at or near his psychiatric baseline and requested discharge and it was so ordered. FINAL DIAGNOSES Chronic paranoid schizophrenia and alcohol use disorder. DISPOSITION ON DISCHARGE The patient is discharged on the following medications; Haldol 10 mg t.i.d., Haldol Decanoate 100 mg IM q.2 weeks, Cogentin 2 mg q.8 hours for EPS, Norvasc 5 mg once daily for hypertension. DISCHARGE INSTRUCTIONS No dietary or physical restrictions were placed on the patient at the time of discharge. FOLLOWUP Followup will take place through the auspices of community mental health resources. PROGNOSIS The patient's prognosis is considered fair. Dictated by... Curtis Ellis M.D. LUX/stanley TD: 04/29/2017 23:59 Unit #: [id number] #: [id number] Patient: BRITTANY WRAY JOB #: [id number] DISCHARGE SUMMARY Page 1 of 1 X Curtis Ellis MD DISCHARGE SUMMARY
--- NOTE | ~2017-04-24 | PA ---
Unit #: [id number] #: [id number] Patient: BRITTANY WRAY [id number] [facility] [address] [place] [address] [id number] I MR#: [id number] NAME: BRITTANY WRAY. ROOM: P114 Age: 47 Sex: M Admission Date: 04/24/2017 : 1970 Date of Assessment: 04/25/2017 Attending Physician: Curtis Ellis M.D. Admitting Physician: Curtis Ellis M.D. Primary Care Physician: Generic Doctor Not In System PSYCHIATRIC ASSESSMENT IDENTIFYING INFORMATION The patient is a 47-year-old male admitted after he had presented to [facility] claiming to be suicidal. CHIEF COMPLAINT None given. INFORMANT(S) Chart. Patient cannot be aroused for interview. HISTORY OF PRESENT ILLNESS The patient is a 47-year-old male admitted in transfer from [facility] where he had presented claiming to be suicidal with access to a firearm. The patient was just discharged from this facility on 04/17/2017. At that time, he was treated for alcohol dependence and also carries a diagnosis of schizophrenia. For more complete history of present illness, please refer to previously dictated notes. PAST PSYCHIATRIC HISTORY Reviewed, no changes. PAST MEDICAL HISTORY Reviewed, no changes. MEDICATIONS Prozac, Norvasc, Cogentin, and Trilafon. ALLERGIES Risperdal, Geodon. FAMILY HISTORY Reviewed, no changes. SOCIAL HISTORY Reviewed, no changes. MENTAL STATUS EXAMINATION Examination at this time reveals the patient to be a well-developed well-nourished male appearing his stated age. He is abed and does not arouse for interview. ASSETS AND LIABILITIES Unit #: [id number] #: [id number] Patient: BRITTANY WRAY The patient's assets are to be assessed. Liabilities: Lack of resources, hospital dependence. DIAGNOSTIC IMPRESSION 1. Paranoid schizophrenia. 2. Hypertension. 3. Alcohol use disorder. TREATMENT PLAN The patient remains hospitalized for safety and stabilization. We will restart previously prescribed medications. The patient will participate in appropriate order of milieu activities. ESTIMATED LENGTH OF STAY 3 to 5 days. Dictated by... Curtis Ellis M.D. LUX/kathleen TD: 04/25/2017 13:48 JOB #: [id number] PSYCHIATRIC ASSESSMENT Page 1 of 1 X Curtis Ellis MD PSYCHIATRIC ASSESSMENT
== END 2017-04-29 12:50 | disposition home or self-care (01) | DRG 885 ==
LOC: P1S 21:10 → P1E 21:10 → P1S 04-25 09:38
DX: F20.0 Paranoid schizophrenia (principal); I10 Essential (primary) hypertension; F10.20 Alcohol dependence, uncomplicated